=== PATIENT | female | born 1965 | race Caucasian/White ===

== ENCOUNTER → 2016-08-27 | Outpatient (CLI) | payer OTHER | LOC: FIMAGING 15:09 | DX: Z12.31 Encounter for screening mammogram for malignant neoplasm of breast (principal) | CPT/HCPCS: G0202 ==

== ENCOUNTER → 2017-09-28 | Outpatient (CLI) | payer OTHER | LOC: FIMAGING 10:45 | PROVIDERS: ATTEND Obstetrics & Gynecology Gynecology | DX: Z12.31 Encounter for screening mammogram for malignant neoplasm of breast (principal) ==

== ENCOUNTER → 2018-01-16 | Outpatient (CLI) | payer OTHER ==
[~2018-01-16] MED LIST: GADOBUTROL 10 ML VIAL IVP ONE
== END ==
LOC: FIMAGING 06:34
PROVIDERS: ATTEND Obstetrics & Gynecology Gynecology
DX: N64.52 Nipple discharge (principal); H90.5 Unspecified sensorineural hearing loss; R94.02 Abnormal brain scan
CPT/HCPCS: 0159T; 70553; 77059; A9585; C8908

== ENCOUNTER → 2018-05-15 | Outpatient (CLI) | payer OTHER | LOC: FIMAGING 14:17 | PROVIDERS: ATTEND Physician Assistant Medical | DX: R92.8 Other abnormal and inconclusive findings on diagnostic imaging of breast (principal) ==

== ENCOUNTER 2018-06-12 08:16 | Outpatient (CLI) | payer OTHER ==
[2018-06-12] MEDS ORDERED: HEPARIN 10,000 UNIT/10 ML MDV (1,000 UNIT/ML) IVP PRN (09:01)
[2018-06-12] MEDS ORDERED: MEPERIDINE 25 MG/ML SYR IVP PRN (09:01)
[2018-06-12] MEDS ORDERED: fentaNYL 100 MCG/2 ML INJ IVP PRN (09:01)
[2018-06-12] MEDS ORDERED: FLUMAZENIL 0.5 MG/5 ML MDV IVP PRN (09:01)
[2018-06-12] MEDS ORDERED: MIDAZOLAM 2 MG/2 ML VIAL IVP PRN (09:01)
[2018-06-12] MEDS ORDERED: NALOXONE HCL 0.4 MG/ML INJ IVP PRN (09:01)
[2018-06-12 09:08] VITALS: BP 133/90
[2018-06-12] MEDS ORDERED: LIDOCAINE 1% 5 ML SDV ONE ×2 (09:08→09:33)
[2018-06-12] MEDS ORDERED: BUPIVACAINE 0.5% 30 ML SDV ONE (09:09)
[2018-06-12] MEDS ORDERED: NA BICARBONATE 50 MEQ/50 ML VIAL ONE (09:09)
[2018-06-12] MEDS ORDERED: GADOBUTROL 10 ML VIAL IVP ONE (09:09)
[2018-06-12] MEDS ORDERED: NS 1,000 ML IV SCH (09:15)
[2018-06-12] MEDS ORDERED: THROMBIN (BOVINE) 5,000 UNIT VIAL TP ONE (10:02)
== END 2018-06-12 12:15 | disposition home or self-care (01) ==
LOC: FIMAGING 08:16
PROVIDERS: ATTEND Obstetrics & Gynecology Gynecology
PROC: 0HBT3ZX Excision of Right Breast, Percutaneous Approach, Diagnostic (ICD-10-PCS; principal; 2018-06-12)
DX: D24.1 Benign neoplasm of right breast (principal); N60.11 Diffuse cystic mastopathy of right breast
CPT/HCPCS: A9585; J2250; J2310; J3010